=== PATIENT | male | born 1955 | race Caucasian/White ===

== ENCOUNTER → 2017-10-22 08:54 | Outpatient (CLI) | payer BC | END | disposition home or self-care (01) | LOC: D.RAD 10-21 09:30 | DX: R13.10 Dysphagia, unspecified (principal) ==

== ENCOUNTER → 2019-03-07 08:20 | Outpatient (CLI) | payer BC | END | disposition home or self-care (01) | LOC: D.HCCARDIO 08:20 | DX: I25.10 Atherosclerotic heart disease of native coronary artery without angina pectoris (principal) ==